=== PATIENT | male | born 1960 | race Caucasian/White ===

== ENCOUNTER → 2023-07-01 14:13 | Outpatient (REF) | payer OTHER, SELFPAY | LOC: RAD 14:13 | PROVIDERS: ATTENDING PHYSICIAN Family Medicine | DX: R42 Dizziness and giddiness (principal); R51.9 Headache, unspecified; E78.2 Mixed hyperlipidemia | CPT/HCPCS: 93880 ==

== ENCOUNTER → 2023-12-22 08:22 | Outpatient (REF) | payer OTHER, SELFPAY | LOC: HWRAD 08:22 | PROVIDERS: ATTENDING PHYSICIAN Specialist; FAMILY PHYSICIAN Family Medicine | DX: M19.011 Primary osteoarthritis, right shoulder (principal) | CPT/HCPCS: 73200 ==

== ENCOUNTER → 2024-12-15 13:48 | Outpatient (REF) | payer BC, SELFPAY | LOC: DHSLP 13:48 | PROVIDERS: ATTENDING PHYSICIAN Otolaryngology Facial Plastic Surgery; FAMILY PHYSICIAN Family Medicine | DX: G47.33 Obstructive sleep apnea (adult) (pediatric) (principal) | CPT/HCPCS: 95800 ==